=== PATIENT | female | born 1995 | race Caucasian/White ===

== ENCOUNTER 2022-07-06 14:42 | Inpatient (IN) ==
--- NOTE | 2022-07-06 15:05 | History & Physical Report ---
Date of Service July 06, 2022 Assessment & Plan (1) Obesity affecting in third trimester, antepartum: (2) Gestational diabetes mellitus (GDM): (3) Oligohydramnios: Plan: 26-year-old -0-1-0 at 37 weeks and 6 days of gestation sent from office by MFM for induction of labor at term due to high risk with oligohydramnios noted today, Vital signs stable afebrile, heart rate reassuring, GBS negative, Cervix unfavorable, Plan to admit, monitor, labs, cervical ripening with prostaglandins, All questions were answered. (4) Asplenia: Admission and Anticipated Discharge Date Admission Date: July 06, 2022 History of Present Illness Primary Care Provider: Hung Saeed MD Patient is a 26-year-old -0-1-0 at 37 weeks and 6 days of gestation who was sent from office after having ultrasound by [facility] which indicated oligohydramnios but one pocket of 1.7 cm. Patient denies contractions, leakage of fluid, vaginal bleeding. She reports good movements. Her has been complicated by, 1. Obesity during , 2. GDMA1, 3. Thrombocytosis, 4. History of LGSIL GBS negative Allergies Allergy/AdvReac Type Severity Reaction Status Date / Time No Known Allergies Allergy Mild Verified 07/06/22 15:40 Home Medications Medication Instructions Recorded Confirmed Type prenat.vits,hugo,qgo-kjva-zhoqs 1 tab PO DAILY 07/06/22 07/06/22 History Patient History Medical History (Updated 07/06/22 @ 15:05 by Wesly Srivastava MD) Asplenia following mono Asthma No chronic diseases present Varicella vaccination Surgical History H/O splenectomy Family History Denies family history of Ovarian cancer Breast cancer Colorectal cancer Uterine cancer Social History Smoking Status: Never smoker Tobacco Type: Cigarettes Hx Alcohol Use: Yes Hx Substance Use: No Preferred Language: Hebrew Beliefs That Will Affect Care: None marital status: Single marital status details: danny Hinojosa (23) [phone] Current Living Situation: Parent Current Living Situation Comment: lives with her father current occupational status: employed current occupation: [employer] Other Information That Helps Us Care for You: No Feels Safe at Home: Yes Safety Concerns: Feels Safe At This Time OB History #1, SAB in 2020, #2 current PTA History No history of STDs, no history of genital herpes, chlamydia, gonorrhea. Review of Systems as per Subjective / HPI Physical Exam Constitutional: WD/WN, vitals as above well developed, well nourished, + obese and comfortable Gastrointestinal (Abdomen): normal bowel sounds, soft, nontender, no hepatosplenomegaly (Gravid) Genitourinary: normal external appearance OB Exam Abdomen: + vertex Manual OB Exam: + cervical dilation 1 cm, + cervical effacement 30% and + station high OB Exam Monitor Tracing: + external uterine monitor used and + category I Results & Data ([facility]) Vital Signs (Past 12 Hours) Vital Signs Pulse BP 07/06/22 14:49 81 119/62
[2022-07-06] MEDS ORDERED: DINOPROSTONE 10 MG INSERT PV ONE (15:10)
[2022-07-06] MEDS ORDERED: LIDOCAINE 1% LOCAL 20 ML VIAL INFIL PRN (15:10)
[2022-07-06] MEDS ORDERED: OXYTOCIN 30 UNITS/500 ML BAG IV PRN (15:10)
[2022-07-06 15:51] LABS: Hematocrit (blood only) 32.8 % (37.0-47.0); Hemoglobin 11.2 g/dl (12.0-16.0); Mean Corpuscular Hemoglobin 28.6 pg (25.0-34.0); Mean Corpuscular Hgb Conc 34.1 g/dL (32.0-36.0); Mean Corpuscular Volume 83.7 fL (80.0-100.0); Mean Platelet Volume 10.5 fL (9.4-12.4); Platelet Count 405 K/uL (130-400); RDW Coefficient of Variation 14.9 % (11.5-14.5); Red Blood Count 3.92 M/uL (4.20-5.40); White Blood Count 9.51 K/ul (4.8-10.8)
[2022-07-06 16:06] LABS: Albumin Level 3.2 gm/dl (3.4-5.0); Bilirubin,Total 0.3 mg/dl (0.2-1.0); Calcium 9.2 mg/dl (8.5-10.1); Potassium 3.7 mmol/L (3.5-5.1)
[2022-07-06] MEDS ORDERED: BUTORPHANOL TARTRATE 1 MG/ML VIAL IV PRN (16:09)
[2022-07-06 16:12] LABS: Albumin Globulin Ratio 0.9 (0.9-2); BUN Creatinine Ratio 13.8 (10-20); Creatinine Clr Calc Pharmacy 175.5 ml/min; Est GFR (African American) 148.5 ml/min; Est GFR (Non-African American) 128.1 ml/min; Globulin 3.5 gm/dl (2.5-4.0); Total Protein 6.7 gm/dl (6.0-8.3)
[2022-07-06] MEDS: LACTATED RINGER'S 1,000 ML IV PRN ×3 (17:36→22:47)
[2022-07-06] MEDS: ONDANSETRON INJ 2 MG/ML 2 ML VIAL IV PRN (20:56)
[2022-07-06] MEDS ORDERED: ePHEDrine sulfate 50 MG/ML AMP ONE (21:58)
[2022-07-06] MEDS ORDERED: fentaNYL citrate 100 MCG/2 ML VIAL ONE (21:59)
[2022-07-06] MEDS ORDERED: LIDOCAINE 2%/EPINEPHRINE 1:200,000 20 ML SDV ONE (21:59)
[2022-07-06] MEDS ORDERED: SODIUM CHLORIDE 0.9% INJ 10 ML VIAL ONE (21:59)
[2022-07-06] MEDS ORDERED: fentaNYL 2MCG/ML ROPIVACAINE 1.25MG/ML 100 ML BAG EPI ONE (21:59)
[2022-07-06] MEDS ORDERED: BUPIVACAINE 0.25% 30 ML VIAL ONE (21:59)
--- NOTE | 2022-07-06 22:18 | Anesthesiology Consultation ---
Date of Service July 06, 2022 Assessment & Plan (1) Encounter for pre-operative examination: Chart Review Chart Review: Acceptable Risk for Labor Epidural Consults Requested none ASA ASA2 Proposed Anesthesia Anesthesia Type: Labor Epidural Risk / Benefits Reviewed With: PT / POA / Parent / Guardian, Accepts Plan and Informed Consent Obtained History Height/Weight Height: 5 ft 3 in Weight: 108.862 kg Allergies Allergy/AdvReac Type Severity Reaction Status Date / Time No Known Allergies Allergy Mild Verified 07/06/22 15:40 Medications Home Medications Medication Instructions Recorded Confirmed Last Taken prenat.vits,hugo,zdf-weyq-mdjfr 1 tab PO DAILY 07/06/22 07/06/22 Unknown Active Medications Generic Name Dose Route Start Last Admin Trade Name Freq PRN Reason Stop Dose Admin Butorphanol Tartrate 1 mg 07/06/22 16:09 07/06/22 18:17 Butorphanol Tartrate 1 Mg/Ml Vial IV 08/05/22 16:08 1 mg Q3HWA PRN Administration Pain Lactated Ringer's 1,000 mls @ 150 mls/hr 07/06/22 15:10 07/06/22 21:15 Lr IV 07/08/22 15:09 999 mls/hr .[id number] PRN Administration L&D Protocol Protocol Ondansetron HCl 4 mg 07/06/22 20:45 07/06/22 20:56 Ondansetron Inj 2 Mg/Ml 2 Ml Vial IV 08/05/22 20:44 4 mg Q4H PRN Administration Nausea Past Medical History Medical History Asplenia following mono Asthma No chronic diseases present Varicella vaccination Exercise / Class Metabolic Activity II 4-5 Yardwork/Stairs/Walk up hill Past Family History Family History Denies family history of Ovarian cancer Breast cancer Colorectal cancer Uterine cancer Past Surgical History Surgical History H/O splenectomy Past Anesthesia History No Hx of Anesthesia Complications and No Family Hx of Anesthesia Complications History of PONV No Hx of PONV and No Hx of Motion Sickness Social History Smoking Status: Never smoker Hx Alcohol Use: No Hx Substance Use: No substance use type: does not use Physical Exam Vital Signs Last Vital Signs Temp 98.1 F 07/06/22 19:30 Pulse 62 07/06/22 22:10 Resp 16 07/06/22 19:30 BP 116/56 L 07/06/22 19:27 Pulse Ox 96 07/06/22 22:10 ENMT Mouth: no dentition abnormality Thyromental Distance: > or= 3.5 Finger Breadths Mallampati Class: II Neck normal visual inspection Respiratory normal respiratory effort Auscultation: lungs clear to auscultation bilaterally Cardiovascular Rate/Rhythm: regular rate and regular rhythm Testing Laboratory Results 07/06/22 15:38 07/06/22 15:39 Blood Type O Positive 07/06/22 15:38 Antibody Screen NEGATIVE 07/06/22 15:38 07/06/22 07/06/22 19:29 16:10 POC Glucose 97 111 H
--- NOTE | 2022-07-06 22:22 | Obstetrical Progress Note ---
Date of Service July 06, 2022 Assessment & Plan Admission and Anticipated Discharge Date Admission Date: July 06, 2022 Subjective Patient is reevaluated. She has recevied Cervidil at 4 pm and started to have ctxs around 5 pm. She has received Stadol for pain around 6 pm and now again painful. Contractions have been very close to each other every q1-2 min and she has been feeling them all. VE; Cevidil is removed, cervix is 2/ 50%/ -2, tight bag FHR categ I Continue to monitor closely Epidural for pain. Results & Data ([facility]) Vital Signs (Past 12 Hours) Vital Signs Temp Pulse Resp BP Pulse Ox 07/06/22 14:56 36.6 C 20 07/06/22 22:15 98 07/06/22 22:15 63 07/06/22 22:10 96 07/06/22 22:10 62 07/06/22 22:05 96 07/06/22 22:05 60 07/06/22 22:00 98 07/06/22 22:00 70 07/06/22 21:56 93 07/06/22 21:56 60 07/06/22 21:55 96 07/06/22 21:55 58 L 07/06/22 19:30 16 07/06/22 19:30 36.7 C 16 07/06/22 19:27 69 07/06/22 19:27 116/56 L 07/06/22 18:55 76 07/06/22 18:55 97/56 L 07/06/22 18:50 67 07/06/22 18:50 99/54 L 07/06/22 18:45 71 07/06/22 18:45 94/51 L 07/06/22 18:44 67 07/06/22 18:44 87/52 L 07/06/22 18:34 69 07/06/22 18:34 87/48 L 07/06/22 18:32 68 07/06/22 18:32 84/42 L 07/06/22 18:29 65 07/06/22 18:29 88/45 L 07/06/22 14:49 81 119/62
[2022-07-06] MEDS ORDERED: NALOXONE HCL 1 MG in SODIUM CHLORIDE 0.9% 1000ML 1,000 ML IV PRN (22:37)
[2022-07-06] MEDS ORDERED: NALOXONE HCL 0.4 MG/1 ML VIAL/CARP IV PRN (22:37)
[2022-07-06] MEDS ORDERED: ONDANSETRON INJ 2 MG/ML 2 ML VIAL IV PRN (22:37)
[2022-07-06] MEDS ORDERED: NALBUPHINE HCL INJ 10 MG/ML AMP IV PRN (22:37)
[2022-07-06] MEDS ORDERED: ePHEDrine sulfate 50 MG/ML AMP IV PRN (22:37)
[2022-07-06] MEDS ORDERED: diphenhydrAMINE 50 MG/ML VIAL IV PRN (22:37)
[2022-07-06] MEDS ORDERED: fentaNYL 2MCG/ML ROPIVACAINE 1.25MG/ML 100 ML BAG EPI PRN (22:37)
[2022-07-06] MEDS ORDERED: TERBUTALINE SULFATE 1 MG/ML VIAL SQ ONE (23:40)
[2022-07-07] MEDS: ONDANSETRON INJ 2 MG/ML 2 ML VIAL IV PRN ×2 (02:24→06:32)
[2022-07-07] MEDS ORDERED: NURSING L&D Epidural Breakthrough Pain Update ONE (02:33)
--- NOTE | 2022-07-07 02:58 | Obstetrical Progress Note ---
Date of Service July 07, 2022 Assessment & Plan Admission and Anticipated Discharge Date Admission Date: July 06, 2022 Subjective FHR had been categ I despite hyperstimulation earlier, ctxs spaced out and did not need to give Terbutaline, FHR baseline 105-110,Started to have decels with and after contractions. VE; 6/ 90%/ 0, good accel and increased variability after scalp stimulation Ctxs q 1-2 min Patients pulse ox drops to low 90's when sleeping suggesting sleep apnea Started nasal O2, IVF bolus and one dose of Terbutaline FHR 110-120's Continue to monitor closely Anticipate Results & Data ([facility]) Vital Signs (Past 12 Hours) Vital Signs Temp Pulse Resp BP Pulse Ox 07/06/22 14:56 36.6 C 20 07/07/22 02:50 60 99 07/07/22 02:51 70 102/55 L 07/07/22 02:45 66 98 07/07/22 02:44 61 94 07/07/22 02:40 62 97 07/07/22 02:37 55 L 106/52 L 07/07/22 02:35 59 L 93 07/07/22 02:34 55 L 93 07/07/22 02:30 57 L 18 94 07/07/22 02:28 57 L 94 07/07/22 02:25 61 96 07/07/22 02:22 69 94 07/07/22 02:20 77 96 07/07/22 02:21 97 H 130/77 07/07/22 02:15 58 L 97 07/07/22 02:13 60 94 07/07/22 02:10 57 L 95 07/07/22 02:07 56 L 126/82 07/07/22 02:06 63 94 07/07/22 02:05 60 96 07/07/22 02:00 36.7 C 60 18 96 07/07/22 01:58 57 L 94 07/07/22 01:55 59 L 94 07/07/22 01:53 61 94 07/07/22 01:52 56 L 132/69 07/07/22 01:50 66 97 07/07/22 01:45 86 96 07/07/22 01:40 95 07/07/22 01:40 60 07/07/22 01:40 65 94 07/07/22 01:36 61 106/60 02/03/23 01:35 94 07/07/22 01:35 66 07/07/22 01:35 60 94 07/07/22 01:30 57 L 18 94 07/07/22 01:29 62 94 07/07/22 01:25 63 94 07/07/22 01:24 60 94 07/07/22 01:20 55 L 96 07/07/22 01:21 55 L 118/68 07/07/22 01:18 64 94 07/07/22 01:15 58 L 97 07/07/22 01:10 55 L 96 07/07/22 01:07 55 L 115/55 L 94 07/07/22 01:05 59 L 95 07/07/22 01:00 57 L 96 07/07/22 00:59 62 94 07/07/22 00:55 59 L 94 07/07/22 00:53 59 L 94 07/07/22 00:51 67 103/59 L 07/07/22 00:50 66 92 07/07/22 00:48 57 L 94 07/07/22 00:45 65 92 07/07/22 00:40 57 L 95 07/07/22 00:41 56 L 94 07/07/22 00:35 56 L 91 07/07/22 00:36 54 L 104/55 L 07/07/22 00:34 57 L 93 07/07/22 00:30 55 L 18 95 07/07/22 00:28 56 L 94 07/07/22 00:25 58 L 93 07/07/22 00:22 52 L 110/59 L 07/07/22 00:21 54 L 94 07/07/22 00:20 58 L 94 07/07/22 00:15 56 L 92 07/07/22 00:16 61 93 07/07/22 00:10 93 07/07/22 00:10 57 L 07/07/22 00:10 57 L 93 07/07/22 00:07 65 99/54 L 07/07/22 00:05 58 L 94 07/07/22 00:01 58 L 94 07/07/22 00:00 60 18 93 07/06/22 23:55 94 07/06/22 23:55 53 L 07/06/22 23:54 94 07/06/22 23:54 61 02/02/23 23:52 54 L 07/06/22 23:52 112/56 L 07/06/22 23:50 94 07/06/22 23:50 55 L 07/06/22 23:49 93 07/06/22 23:49 62 07/06/22 23:45 92 07/06/22 23:45 67 07/06/22 23:44 94 07/06/22 23:44 65 07/06/22 23:40 94 07/06/22 23:40 56 L 07/06/22 23:38 94 07/06/22 23:38 61 07/06/22 23:37 70 07/06/22 23:37 103/52 L 07/06/22 23:35 95 07/06/22 23:35 55 L 07/06/22 23:33 94 07/06/22 23:33 59 L 07/06/22 23:30 18 07/06/22 23:30 18 07/06/22 23:30 94 07/06/22 23:30 63 07/06/22 23:27 94 07/06/22 23:27 59 L 07/06/22 23:25 95 07/06/22 23:25 59 L 07/06/22 23:21 94 07/06/22 23:21 63 07/06/22 23:21 102/52 L 07/06/22 23:20 94 07/06/22 23:20 58 L 07/06/22 23:15 93 07/06/22 23:15 61 07/06/22 23:10 96 07/06/22 23:10 53 L 07/06/22 23:08 94 07/06/22 23:07 51 L 07/06/22 23:08 56 L 07/06/22 23:07 109/59 L 07/06/22 23:05 96 07/06/22 23:05 72 07/06/22 23:00 97 07/06/22 23:01 94 07/06/22 23:00 61 07/06/22 23:01 62 07/06/22 23:00 18 07/06/22 23:00 36.9 C 18 07/06/22 22:55 97 07/06/22 22:55 56 L 07/06/22 22:18 18 07/06/22 22:18 18 07/06/22 22:51 51 L 07/06/22 22:51 107/59 L 07/06/22 22:50 97 07/06/22 22:50 61 07/06/22 22:49 54 L 07/06/22 22:49 105/55 L 07/06/22 22:45 98 07/06/22 22:45 59 L 07/06/22 22:43 68 07/06/22 22:43 113/53 L 07/06/22 22:41 94 07/06/22 22:41 75 07/06/22 22:41 117/65 07/06/22 22:40 97 07/06/22 22:40 71 07/06/22 22:39 73 07/06/22 22:39 117/61 07/06/22 22:37 81 07/06/22 22:37 122/65 07/06/22 22:35 97 07/06/22 22:35 75 07/06/22 22:35 79 07/06/22 22:35 121/61 07/06/22 22:32 95 H 07/06/22 22:32 119/77 07/06/22 22:30 98 07/06/22 22:30 86 07/06/22 22:29 59 L 07/06/22 22:29 116/67 07/06/22 22:25 98 07/06/22 22:25 70 07/06/22 22:20 98 07/06/22 22:20 67 07/06/22 22:15 98 07/06/22 22:15 63 07/06/22 22:10 96 07/06/22 22:10 62 07/06/22 22:05 96 07/06/22 22:05 60 07/06/22 22:00 98 07/06/22 22:00 70 07/06/22 21:56 93 07/06/22 21:56 60 07/06/22 21:55 96 07/06/22 21:55 58 L 07/06/22 19:30 16 07/06/22 19:30 36.7 C 16 07/06/22 19:27 69 07/06/22 19:27 116/56 L 07/06/22 18:55 76 07/06/22 18:55 97/56 L 07/06/22 18:50 67 07/06/22 18:50 99/54 L 07/06/22 18:45 71 07/06/22 18:45 94/51 L 07/06/22 18:44 67 07/06/22 18:44 87/52 L 07/06/22 18:34 69 07/06/22 18:34 87/48 L 07/06/22 18:32 68 07/06/22 18:32 84/42 L 07/06/22 18:29 65 07/06/22 18:29 88/45 L
[2022-07-07] MEDS: LACTATED RINGER'S 1,000 ML IV PRN ×2 (02:59→07:11)
[2022-07-07] MEDS ORDERED: TERBUTALINE SULFATE 1 MG/ML VIAL ONE (06:15)
[2022-07-07] MEDS ORDERED: OXYTOCIN 30 UNITS/500 ML BAG IV PRN ×2 (07:23→11:35)
--- NOTE | 2022-07-07 09:04 | Anesthesia Procedure Note ---
Date of Service July 07, 2022 Anesthesia Post Epidural Note Vital Signs Vital Signs: Temp Pulse Resp BP Pulse Ox O2 Del Method O2 Flow Rate 97.7 F 80 18 100/54 L 88 L 2 07/07/22 08:30 07/07/22 08:51 07/07/22 08:45 07/07/22 08:51 07/07/22 08:15 07/07/22 07:05 07/07/22 07:05 Pain Intensity Bilateral Abdomen: Pain Intensity: 0 Notes Mental Status: alert / awake / arousable and participated in evaluation Nausea / Vomiting: adequately controlled Pain: adequately controlled Airway Patency, RR, SpO2: stable & adequate BP & HR: stable & adequate Hydration State: stable & adequate Neuraxial Anesthesia: was administered and sensory block is resolving Anesthetic Complications: no major complications apparent and Pt Satisfied with anesthetic care Epidural: Removed without complications and With tip intact
--- NOTE | 2022-07-07 09:31 | Delivery Summary ---
Vaginal Delivery Summary Date of Service July 07, 2022 Vaginal Delivery Summary Delivery Note live male over intact perineum MARGARETTE with nuchal cord x1 reduced at time of delivery of head. Apgars 8/9 weight pending. Cord blood obtained followed by spontaneous delivery of intact placenta. No tears. EBL 100 ml. Final sponge and instrument count are correct. Mom and baby stable.
[2022-07-07] MEDS ORDERED: BENZOCAINE 20% AER SPR 82.5 GM CAN EXT PRN (11:35)
[2022-07-07] MEDS ORDERED: bisacodyL 10 MG SUPP PR PRN (11:35)
[2022-07-07] MEDS ORDERED: DIPHTHERIA/TETANUS/PERTUSSIS 0.5mL SYR/VIAL (Age 7+yrs) IM ONE (11:35)
[2022-07-07] MEDS ORDERED: ACETAMINOPHEN 325 MG TAB PO PRN (11:35)
[2022-07-07] MEDS ORDERED: HYDROCORTISONE ACETATE 25 MG SUPP PR PRN (11:35)
[2022-07-07] MEDS ORDERED: IBUPROFEN 600 MG TAB PO PRN (11:35)
[2022-07-07] MEDS: DOCUSATE SODIUM 100 MG CAP PO SCH (20:52)
[2022-07-08 06:26] LABS: Hematocrit (blood only) 29.4 % (37.0-47.0); Mean Corpuscular Hemoglobin 28.9 pg (25.0-34.0); Mean Platelet Volume 10.5 fL (9.4-12.4); Platelet Count 338 K/uL (130-400); RDW Coefficient of Variation 15.2 % (11.5-14.5); RDW Standard Deviation 46.5 fL (36.4-46.3); Red Blood Count 3.46 M/uL (4.20-5.40); White Blood Count 16.34 K/ul (4.8-10.8)
--- NOTE | 2022-07-08 07:33 | Obstetrical Progress Note ---
Date of Service July 08, 2022 Assessment & Plan Admission and Anticipated Discharge Date Admission Date: July 06, 2022 Subjective Patient is seen and examined. She feels well, no complaints. Ambulating without dizziness Voiding without difficulty Tolerating regular diet with out N&V Bleeding is minimal No fever/ chills/ CP/ SOB/ N&V/ Leg pain Bottle feeding without problems Vital Signs Temp Pulse Resp BP Pulse Ox O2 Del Method 07/08/22 03:10 36.8 C 70 18 110/69 95 Room Air 07/07/22 23:20 36.9 C 69 16 116/71 96 Room Air 07/07/22 20:15 36.8 C 78 18 111/67 96 Room Air Lab Results 07/06/22 07/06/22 07/06/22 Range/Units 15:38 15:38 15:39 WBC 9.51 (4.8-10.8) K/ul RBC 3.92 L (4.20-5.40) M/uL Hgb 11.2 L (12.0-16.0) g/dl Hct 32.8 L (37.0-47.0) % MCV 83.7 (80.0-100.0) fL MCH 28.6 (25.0-34.0) pg MCHC 34.1 (32.0-36.0) g/dL RDW Std Deviation 45.0 (36.4-46.3) fL RDW Coeff of Oliva 14.9 H (11.5-14.5) % Plt Count 405 H (130-400) K/uL MPV 10.5 (9.4-12.4) fL Sodium 136 (136-145) mmol/L Potassium 3.7 (3.5-5.1) mmol/L Chloride 105 (98-107) mmol/L Carbon Dioxide 23 (21-32) mmol/L Anion Gap 8 (3-11) BUN 8 (6-23) mg/dl Creatinine 0.58 L (0.6-1.2) mg/dl Est Cr Clr Drug Dosing 175.5 ml/min Est GFR ( Amer) 148.5 ml/min Est GFR (Non-Af Amer) 128.1 ml/min BUN/Creatinine Ratio 13.8 (10-20) Glucose 118 H (70-99(Fasting)) mg/dl POC Glucose (70-99) mg/dl Calcium 9.2 (8.5-10.1) mg/dl Total Bilirubin 0.3 (0.2-1.0) mg/dl AST 9 L (13-39) U/L ALT 8 (7-52) U/L Alkaline Phosphatase 114 H (34-104) U/L Total Protein 6.7 (6.0-8.3) gm/dl Albumin 3.2 L (3.4-5.0) gm/dl Globulin 3.5 (2.5-4.0) gm/dl Albumin/Globulin Ratio 0.9 (0.9-2) SARS-CoV-2, RNA, NAAT (NEGATIVE) Blood Type O Positive Antibody Screen NEGATIVE 07/06/22 07/06/22 07/06/22 Range/Units 16:10 19:29 Unknown WBC (4.8-10.8) K/ul RBC (4.20-5.40) M/uL Hgb (12.0-16.0) g/dl Hct (37.0-47.0) % MCV (80.0-100.0) fL MCH (25.0-34.0) pg MCHC (32.0-36.0) g/dL RDW Std Deviation (36.4-46.3) fL RDW Coeff of Oliva (11.5-14.5) % Plt Count (130-400) K/uL MPV (9.4-12.4) fL Sodium (136-145) mmol/L Potassium (3.5-5.1) mmol/L Chloride (98-107) mmol/L Carbon Dioxide (21-32) mmol/L Anion Gap (3-11) BUN (6-23) mg/dl Creatinine (0.6-1.2) mg/dl Est Cr Clr Drug Dosing ml/min Est GFR ( Amer) ml/min Est GFR (Non-Af Amer) ml/min BUN/Creatinine Ratio (10-20) Glucose (70-99(Fasting)) mg/dl POC Glucose 111 H 97 (70-99) mg/dl Calcium (8.5-10.1) mg/dl Total Bilirubin (0.2-1.0) mg/dl AST (13-39) U/L ALT (7-52) U/L Alkaline Phosphatase (34-104) U/L Total Protein (6.0-8.3) gm/dl Albumin (3.4-5.0) gm/dl Globulin (2.5-4.0) gm/dl Albumin/Globulin Ratio (0.9-2) SARS-CoV-2, RNA, NAAT NEGATIVE (NEGATIVE) Blood Type Antibody Screen 07/08/22 Range/Units 05:54 WBC 16.34 H (4.8-10.8) K/ul RBC 3.46 L (4.20-5.40) M/uL Hgb 10.0 L (12.0-16.0) g/dl Hct 29.4 L (37.0-47.0) % MCV 85.0 (80.0-100.0) fL MCH 28.9 (25.0-34.0) pg MCHC 34.0 (32.0-36.0) g/dL RDW Std Deviation 46.5 H (36.4-46.3) fL RDW Coeff of Oliva 15.2 H (11.5-14.5) % Plt Count 338 (130-400) K/uL MPV 10.5 (9.4-12.4) fL Sodium (136-145) mmol/L Potassium (3.5-5.1) mmol/L Chloride (98-107) mmol/L Carbon Dioxide (21-32) mmol/L Anion Gap (3-11) BUN (6-23) mg/dl Creatinine (0.6-1.2) mg/dl Est Cr Clr Drug Dosing ml/min Est GFR ( Amer) ml/min Est GFR (Non-Af Amer) ml/min BUN/Creatinine Ratio (10-20) Glucose (70-99(Fasting)) mg/dl POC Glucose (70-99) mg/dl Calcium (8.5-10.1) mg/dl Total Bilirubin (0.2-1.0) mg/dl AST (13-39) U/L ALT (7-52) U/L Alkaline Phosphatase (34-104) U/L Total Protein (6.0-8.3) gm/dl Albumin (3.4-5.0) gm/dl Globulin (2.5-4.0) gm/dl Albumin/Globulin Ratio (0.9-2) SARS-CoV-2, RNA, NAAT (NEGATIVE) Blood Type Antibody Screen PE: General: Alert, orientedx3, NAD Abd: soft, NT, fundus firm, below Umbilicus Perineum intact, Lochia rubra minimal Ext; NT, no edema AP: 26 yo s/p , ppd# 1 VSS Afebrile doing well Continue routine care All questions were answered D/C home tomorrow Results & Data ([facility]) Vital Signs (Past 12 Hours) Vital Signs Temp Pulse Resp BP Pulse Ox O2 Del Method 07/08/22 03:10 36.8 C 70 18 110/69 95 Room Air 07/07/22 23:20 36.9 C 69 16 116/71 96 Room Air 07/07/22 20:15 36.8 C 78 18 111/67 96 Room Air
[2022-07-08] MEDS: PRENATAL VITAMIN 1 TAB PO SCH (07:49)
[2022-07-08] MEDS: DOCUSATE SODIUM 100 MG CAP PO SCH (07:49)
[2022-07-08] MEDS ORDERED: NON-FORMULARY MEDICATION (Prenat.Vits,Cal,Min-Iron-Folic Tablet) PO SCH (09:00)
[2022-07-08] MEDS ORDERED: bisacodyL 5 MG TABEC PO SCH (20:00)
[2022-07-09] MEDS: DOCUSATE SODIUM 100 MG CAP PO SCH ×2 (00:10→08:23)
[2022-07-09 06:46] LABS: Hematocrit (blood only) 32.9 % (37.0-47.0); Hemoglobin 11.1 g/dl (12.0-16.0); Mean Corpuscular Hemoglobin 28.8 pg (25.0-34.0); Mean Corpuscular Hgb Conc 33.7 g/dL (32.0-36.0); Mean Corpuscular Volume 85.2 fL (80.0-100.0); Mean Platelet Volume 10.7 fL (9.4-12.4); Platelet Count 408 K/uL (130-400); RDW Coefficient of Variation 15.2 % (11.5-14.5); RDW Standard Deviation 45.9 fL (36.4-46.3); Red Blood Count 3.86 M/uL (4.20-5.40); White Blood Count 15.78 K/ul (4.8-10.8)
[2022-07-09 07:47] LABS: Basophils # (auto) 0.07 K/uL (0-0.2); Basophils % (auto) 0.4 %; Eosinophils # (auto) 0.31 K/uL (0-0.50); Immature Granulocytes # (auto) 0.07 K/uL (0.01-0.20); Immature Granulocytes % (auto) 0.4 %; Lymphocytes # (auto) 5.47 K/uL (1.2-3.4); Lymphocytes % (auto) 34.7 %; Monocytes # (auto) 1.19 K/uL (0.11-0.59); Monocytes % (auto) 7.5 %; Neutrophils # (auto) 8.67 K/uL (1.40-6.50); RBC Morphology Unremarkable
[2022-07-09] MEDS: FERROUS SULFATE 325 MG TAB PO SCH ×2 (08:23→08:24)
[2022-07-09] MEDS: PRENATAL VITAMIN 1 TAB PO SCH (08:24)
--- NOTE | 2022-07-09 11:02 | Obstetrical Progress Note ---
Date of Service July 09, 2022 Assessment & Plan Admission and Anticipated Discharge Date Admission Date: July 06, 2022 Subjective Patient is seen and examined. She feels well, no complaints. Ambulating without dizziness Voiding without difficulty Tolerating regular diet with out N&V Bleeding is minimal No fever/ chills/ CP/ SOB/ N&V/ Leg pain Bottle feeding without problems Vital Signs Temp Pulse Resp BP Pulse Ox O2 Del Method 07/09/22 08:51 36.7 C 59 L 18 117/76 95 07/09/22 08:05 36.7 C 59 L 18 117/76 Room Air Lab Results 07/06/22 07/06/22 07/06/22 Range/Units 15:38 15:38 15:39 WBC 9.51 (4.8-10.8) K/ul RBC 3.92 L (4.20-5.40) M/uL Hgb 11.2 L (12.0-16.0) g/dl Hct 32.8 L (37.0-47.0) % MCV 83.7 (80.0-100.0) fL MCH 28.6 (25.0-34.0) pg MCHC 34.1 (32.0-36.0) g/dL RDW Std Deviation 45.0 (36.4-46.3) fL RDW Coeff of Oliva 14.9 H (11.5-14.5) % Plt Count 405 H (130-400) K/uL MPV 10.5 (9.4-12.4) fL Immature Gran % (Auto) % Neut % (Auto) % Lymph % (Auto) % [place] % (Auto) % Eos % (Auto) % Baso % (Auto) % Neut # (Auto) (1.40-6.50) K/uL Lymph # (Auto) (1.2-3.4) K/uL [place] # (Auto) (0.11-0.59) K/uL Eos # (Auto) (0-0.50) K/uL Baso # (Auto) (0-0.2) K/uL Immature Gran # (Auto) (0.01-0.20) K/uL RBC Morphology Sodium 136 (136-145) mmol/L Potassium 3.7 (3.5-5.1) mmol/L Chloride 105 (98-107) mmol/L Carbon Dioxide 23 (21-32) mmol/L Anion Gap 8 (3-11) BUN 8 (6-23) mg/dl Creatinine 0.58 L (0.6-1.2) mg/dl Est Cr Clr Drug Dosing 175.5 ml/min Est GFR ( Amer) 148.5 ml/min Est GFR (Non-Af Amer) 128.1 ml/min BUN/Creatinine Ratio 13.8 (10-20) Glucose 118 H (70-99(Fasting)) mg/dl POC Glucose (70-99) mg/dl Calcium 9.2 (8.5-10.1) mg/dl Total Bilirubin 0.3 (0.2-1.0) mg/dl AST 9 L (13-39) U/L ALT 8 (7-52) U/L Alkaline Phosphatase 114 H (34-104) U/L Total Protein 6.7 (6.0-8.3) gm/dl Albumin 3.2 L (3.4-5.0) gm/dl Globulin 3.5 (2.5-4.0) gm/dl Albumin/Globulin Ratio 0.9 (0.9-2) SARS-CoV-2, RNA, NAAT (NEGATIVE) Blood Type O Positive Antibody Screen NEGATIVE 07/06/22 07/06/22 07/06/22 Range/Units 16:10 19:29 Unknown WBC (4.8-10.8) K/ul RBC (4.20-5.40) M/uL Hgb (12.0-16.0) g/dl Hct (37.0-47.0) % MCV (80.0-100.0) fL MCH (25.0-34.0) pg MCHC (32.0-36.0) g/dL RDW Std Deviation (36.4-46.3) fL RDW Coeff of Oliva (11.5-14.5) % Plt Count (130-400) K/uL MPV (9.4-12.4) fL Immature Gran % (Auto) % Neut % (Auto) % Lymph % (Auto) % [place] % (Auto) % Eos % (Auto) % Baso % (Auto) % Neut # (Auto) (1.40-6.50) K/uL Lymph # (Auto) (1.2-3.4) K/uL [place] # (Auto) (0.11-0.59) K/uL Eos # (Auto) (0-0.50) K/uL Baso # (Auto) (0-0.2) K/uL Immature Gran # (Auto) (0.01-0.20) K/uL RBC Morphology Sodium (136-145) mmol/L Potassium (3.5-5.1) mmol/L Chloride (98-107) mmol/L Carbon Dioxide (21-32) mmol/L Anion Gap (3-11) BUN (6-23) mg/dl Creatinine (0.6-1.2) mg/dl Est Cr Clr Drug Dosing ml/min Est GFR ( Amer) ml/min Est GFR (Non-Af Amer) ml/min BUN/Creatinine Ratio (10-20) Glucose (70-99(Fasting)) mg/dl POC Glucose 111 H 97 (70-99) mg/dl Calcium (8.5-10.1) mg/dl Total Bilirubin (0.2-1.0) mg/dl AST (13-39) U/L ALT (7-52) U/L Alkaline Phosphatase (34-104) U/L Total Protein (6.0-8.3) gm/dl Albumin (3.4-5.0) gm/dl Globulin (2.5-4.0) gm/dl Albumin/Globulin Ratio (0.9-2) SARS-CoV-2, RNA, NAAT NEGATIVE (NEGATIVE) Blood Type Antibody Screen 07/08/22 07/09/22 Range/Units 05:54 06:07 WBC 16.34 H 15.78 H (4.8-10.8) K/ul RBC 3.46 L 3.86 L (4.20-5.40) M/uL Hgb 10.0 L 11.1 L (12.0-16.0) g/dl Hct 29.4 L 32.9 L (37.0-47.0) % MCV 85.0 85.2 (80.0-100.0) fL MCH 28.9 28.8 (25.0-34.0) pg MCHC 34.0 33.7 (32.0-36.0) g/dL RDW Std Deviation 46.5 H 45.9 (36.4-46.3) fL RDW Coeff of Oliva 15.2 H 15.2 H (11.5-14.5) % Plt Count 338 408 H (130-400) K/uL MPV 10.5 10.7 (9.4-12.4) fL Immature Gran % (Auto) 0.4 % Neut % (Auto) 55.0 % Lymph % (Auto) 34.7 % [place] % (Auto) 7.5 % Eos % (Auto) 2.0 % Baso % (Auto) 0.4 % Neut # (Auto) 8.67 H (1.40-6.50) K/uL Lymph # (Auto) 5.47 H (1.2-3.4) K/uL [place] # (Auto) 1.19 H (0.11-0.59) K/uL Eos # (Auto) 0.31 (0-0.50) K/uL Baso # (Auto) 0.07 (0-0.2) K/uL Immature Gran # (Auto) 0.07 (0.01-0.20) K/uL RBC Morphology Unremarkable Sodium (136-145) mmol/L Potassium (3.5-5.1) mmol/L Chloride (98-107) mmol/L Carbon Dioxide (21-32) mmol/L Anion Gap (3-11) BUN (6-23) mg/dl Creatinine (0.6-1.2) mg/dl Est Cr Clr Drug Dosing ml/min Est GFR ( Amer) ml/min Est GFR (Non-Af Amer) ml/min BUN/Creatinine Ratio (10-20) Glucose (70-99(Fasting)) mg/dl POC Glucose (70-99) mg/dl Calcium (8.5-10.1) mg/dl Total Bilirubin (0.2-1.0) mg/dl AST (13-39) U/L ALT (7-52) U/L Alkaline Phosphatase (34-104) U/L Total Protein (6.0-8.3) gm/dl Albumin (3.4-5.0) gm/dl Globulin (2.5-4.0) gm/dl Albumin/Globulin Ratio (0.9-2) SARS-CoV-2, RNA, NAAT (NEGATIVE) Blood Type Antibody Screen PE: General: Alert, orientedx3, NAD Abd: soft, NT, fundus firm, below Umbilicus Perineum intact, Lochia rubra minimal Ext; NT, no edema AP: 26 yo s/p , ppd# 2 VSS Afebrile doing well Continue routine care All questions were answered D/C home , f/u in office Results & Data ([facility]) Vital Signs (Past 12 Hours) Vital Signs Temp Pulse Resp BP Pulse Ox O2 Del Method 07/09/22 08:51 36.7 C 59 L 18 117/76 95 07/09/22 08:05 36.7 C 59 L 18 117/76 Room Air
== END 2022-07-09 12:30 | disposition home or self-care (01) | DRG 806 ==
LOC: 4S1 14:42 → 4E2 07-07 10:58

== ENCOUNTER 2024-12-27 06:12 | Inpatient (IN) ==
[2024-12-27] MEDS ORDERED: OXYTOCIN 30 UNITS/NSS 30 UNITS/500 ML BAG IV PRN ×2 (07:07→14:03)
[2024-12-27] MEDS ORDERED: LIDOCAINE 1% LOCAL 20 ML VIAL INFIL PRN (07:07)
[2024-12-27] MEDS: LACTATED RINGER'S 1,000 ML IV PRN (07:15)
--- NOTE | 2024-12-27 07:21 | History & Physical Report ---
Date of Service December 27, 2024 Assessment & Plan (1) Gestational diabetes mellitus (GDM) affecting second : Plan: Admit and start GBS prophylaxis History of Present Illness Chief Complaint: ruptured membranes Primary Care Provider: Hung Saeed MD 29 F [id number] at 40 weeks today with onset of contractions with SROM at 5:30 AM with clear fluid. GBS is positive. GDM on diet. Allergies Allergy/AdvReac Type Severity Reaction Status Date / Time No Known Allergies Allergy Mild Verified 12/27/24 06:34 Home Medications Medication Instructions Recorded Confirmed Type prenat.vits,hugo,ofp-xile-iovjr 1 tab PO DAILY 07/06/22 12/27/24 History Patient History Medical History Gestational diabetes mellitus (GDM) Obesity affecting in third trimester, antepartum Asthma Varicella vaccination Asplenia following mono Surgical History H/O splenectomy Family History Denies family history of Ovarian cancer Breast cancer Colorectal cancer Uterine cancer Social History Smoking Status: Never smoker Tobacco Type: Cigarettes Do You Dip or Chew Tobacco: No; Hx Alcohol Use: No Hx Substance Use: No Preferred Language: Thai Clinical Care Leader Required: No Beliefs That Will Affect Care: None marital status: Single marital status details: danny Flynndwayne (23) [phone] Current Living Situation: Parent and Significant Other Current Living Situation Comment: father and fiance current occupational status: employed current occupation: [employer] Other Information That Helps Us Care for You: No Feels Safe at Home: Yes Safety Concerns: Feels Safe At This Time Assistive Devices: None 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 Review of Systems All systems reviewed & are unremarkable except as noted in HPI & below Physical Exam Constitutional: WD/WN, vitals as above Eyes: PERRL, conjunctivae normal, anicteric sclerae Respiratory: normal respiratory effort Cardiovascular: Rate/Rhythm: regular rate and regular rhythm Gastrointestinal (Abdomen): Inspection/Auscultation: abdomen normal to inspection Musculoskeletal: Extremities: extremities normal to inspection Skin: no rashes, warm and dry Neurologic: patellar DTR's 2+ bilat, sensation intact Psychiatric: A+Ox3, euthymic affect Genitourinary: Manual OB Exam: + cervical dilation 4 cm and + amniotic fluid clear OB Exam Monitor Tracing: + external FHT monitor used, + external uterine monitor used, + category I and + normal FHT variability Results & Data Vital Signs (Past 12 Hours) Vital Signs Temp Pulse Resp BP 12/27/24 06:39 82 123/78 12/27/24 06:35 36.8 C 18 Monitoring External Monitor Cat 1
[2024-12-27] MEDS: PENICILLIN GK 6 MU in DEXTROSE 5% 250 ML IV STA (07:45)
[2024-12-27] MEDS ORDERED: BUPIVACAINE 0.25% PF 30 ML VIAL EPI PRN (07:54)
[2024-12-27] MEDS ORDERED: LIDOCAINE 2% MPF LOCAL 5 ML VIAL EPI PRN (07:54)
[2024-12-27] MEDS ORDERED: NALOXONE HCL 1 MG in SODIUM CHLORIDE 0.9% 1,000 ML IV PRN (07:54)
[2024-12-27] MEDS ORDERED: NALOXONE HCL 0.4 MG/1 ML VIAL/CARP IV PRN (07:54)
[2024-12-27] MEDS ORDERED: diphenhydrAMINE 50 MG/ML VIAL IV PRN (07:54)
[2024-12-27] MEDS ORDERED: SODIUM CHLORIDE 0.9% PF INJ 10 ML VIAL EPI PRN (07:54)
[2024-12-27] MEDS ORDERED: NALBUPHINE HCL INJ 10 MG/ML AMP IV PRN (07:54)
[2024-12-27] MEDS ORDERED: ROPIVACAINE 0.5% PF 5 MG/ML 20 ML VIAL EPI PRN (07:54)
[2024-12-27] MEDS ORDERED: fentANYL 2 MCG/ML BUPIVacaine 0.125%-NSS 100ML BAG EPI PRN (07:54)
[2024-12-27 07:55] LABS: Hematocrit (blood only) 32.5 % (37.0-47.0); Hemoglobin 10.7 g/dl (12.0-16.0); Mean Corpuscular Hemoglobin 27.2 pg (25.0-34.0); Mean Corpuscular Volume 82.7 fL (80.0-100.0); Platelet Count 487 K/uL (130-400); RDW Standard Deviation 46.5 fL (36.4-46.3); Red Blood Count 3.93 M/uL (4.20-5.40); White Blood Count 8.98 K/ul (4.8-10.8)
--- NOTE | 2024-12-27 07:55 | Anesthesiology Consultation ---
Date of Service December 27, 2024 Assessment & Plan Chart Review Chart Review: Acceptable Risk for Labor Epidural Consults Requested none History Height/Weight Height: 5 ft 3.5 in Weight: 113.852 kg Allergies Allergy/AdvReac Type Severity Reaction Status Date / Time No Known Allergies Allergy Mild Verified 12/27/24 06:34 Medications Home Medications Medication Instructions Recorded Confirmed Last Taken prenat.vits,hugo,oji-hdao-wotuq 1 tab PO DAILY 07/06/22 12/27/24 12/26/24 Active Medications Generic Name Dose Route Start Last Admin Trade Name Freq PRN Reason Stop Dose Admin Lactated Ringer's 1,000 mls @ 125 mls/hr 12/27/24 07:07 12/27/24 07:15 Lr IV 12/29/24 07:06 999 mls/hr .Q8H PRN Administration L&D Protocol Protocol Penicillin G Potassium 6 mu/ 262 mls @ 250 mls/hr 12/27/24 07:21 12/27/24 07:45 Dextrose IV 12/27/24 08:23 250 mls/hr NOW STA Administration Past Medical History Medical History Gestational diabetes mellitus (GDM) Obesity affecting in third trimester, antepartum Asthma Varicella vaccination Asplenia following mono Past Family History Family History Denies family history of Ovarian cancer Breast cancer Colorectal cancer Uterine cancer Past Surgical History Surgical History H/O splenectomy Social History Smoking Status: Never smoker Do You Dip or Chew Tobacco: No Hx Alcohol Use: No Hx Substance Use: No substance use type: does not use Physical Exam Vital Signs Last Vital Signs Temp 36.8 C 12/27/24 06:35 Pulse 82 12/27/24 06:39 Resp 18 12/27/24 06:35 BP 123/78 12/27/24 06:39
[2024-12-27] MEDS: LIDOCAINE 2%/EPINEPHRINE 1:200,000 20 ML PF ONE (08:15)
[2024-12-27] MEDS: fentANYL 2 MCG/ML BUPIVacaine 0.125%-NSS 100ML BAG ONE (08:20)
[2024-12-27] MEDS: BUPIVACAINE 0.25% PF 30 ML VIAL ONE (08:24)
[2024-12-27] MEDS: SODIUM CHLORIDE 0.9% PF INJ 10 ML VIAL ONE (08:24)
[2024-12-27] MEDS: SODIUM CHLORIDE 0.9% PF INJ 10 ML VIAL EPI STA (08:25)
[2024-12-27] MEDS: BUPIVACAINE 0.25% PF 30 ML VIAL EPI STA (08:25)
[2024-12-27] MEDS: LIDOCAINE 2%/EPINEPHRINE 1:200,000 20 ML PF EPI STA (08:25)
[2024-12-27] MEDS: ONDANSETRON INJ 2 MG/ML 2 ML VIAL IV STA (08:53)
--- NOTE | 2024-12-27 08:58 | Obstetrical Progress Note ---
Date of Service December 27, 2024 Assessment & Plan Admission and Anticipated Discharge Date Admission Date: December 27, 2024 Subjective Patient is seen and examined. She was admitted by Dr. Nielsen this morning for spontaneous rupture of membranes at term. Started at 5:30 AM, clear, followed by contractions. GBS positive, received first dose of penicillin. she has epidural, comfortable now, no complaints. Her has been complicated by GDM 1, diet-controlled no medications. Vital signs stable afebrile, heart rate category 1, Bode shows contractions every 4 to 5 minutes, Vaginal exam done by myself, cervix is 4 cm, 70% effaced, head is -2 station. Continue to monitor closely, Start oxytocin for augmentation with second dose of penicillin, All questions were answered. Results & Data Vital Signs (Past 12 Hours) Vital Signs Temp Pulse Resp BP Pulse Ox 12/27/24 08:54 83 99 12/27/24 08:49 71 99 12/27/24 08:44 74 99 12/27/24 08:41 78 117/61 12/27/24 08:39 87 99 12/27/24 08:34 86 98 12/27/24 08:29 87 98 12/27/24 08:26 96 H 108/56 L 12/27/24 08:24 90 98 12/27/24 08:23 81 110/58 L 12/27/24 08:20 73 119/56 L 12/27/24 08:19 78 98 12/27/24 08:17 83 134/85 12/27/24 08:14 78 98 12/27/24 08:09 76 97 12/27/24 08:04 70 99 12/27/24 08:01 69 94 12/27/24 07:59 61 95 12/27/24 07:56 67 131/80 12/27/24 07:54 68 96 12/27/24 06:39 82 123/78 12/27/24 06:35 36.8 C 18
[2024-12-27] MEDS: PENICILLIN GK 3 MU in DEXTROSE 5% 100 ML IV PRN (11:37)
[2024-12-27] MEDS: OXYTOCIN 30 UNITS/NSS 30 UNITS/500 ML BAG IV PRN (11:55)
--- NOTE | 2024-12-27 13:40 | Obstetrical Progress Note ---
Date of Service December 27, 2024 Assessment & Plan Admission and Anticipated Discharge Date Admission Date: December 27, 2024 Subjective Patient received second dose of penicillin, on oxytocin now, She feels comfortable no pain nor pressure, Vital signs stable afebrile Cervix is 9 cm dilated, 90% effaced, head is 0 station, +1 with contraction, heart rate category 1 with occasional variable D cells, good variability and accelerations present, Continue to monitor closely, Will start pushing when she feels pressure. Results & Data Vital Signs (Past 12 Hours) Vital Signs Temp Pulse Resp BP Pulse Ox 12/27/24 13:34 78 98 12/27/24 13:30 71 94 12/27/24 13:29 82 96 12/27/24 13:27 75 109/64 12/27/24 13:24 69 97 12/27/24 13:19 84 94 12/27/24 13:18 85 94 12/27/24 13:14 69 96 12/27/24 13:12 78 120/64 12/27/24 13:09 69 97 12/27/24 13:08 89 91 12/27/24 13:04 66 96 12/27/24 13:03 71 94 12/27/24 12:59 76 96 12/27/24 12:56 78 130/74 12/27/24 12:54 96 12/27/24 12:54 76 12/27/24 12:54 63 94 12/27/24 12:49 81 96 12/27/24 12:44 63 96 12/27/24 12:41 75 123/76 12/27/24 12:39 77 96 12/27/24 12:35 61 94 12/27/24 12:34 68 96 12/27/24 12:29 79 96 12/27/24 12:27 67 119/73 12/27/24 12:26 76 94 12/27/24 12:24 64 94 12/27/24 12:21 61 93 12/27/24 12:19 68 94 12/27/24 12:14 67 93 12/27/24 12:13 68 94 12/27/24 12:11 66 122/75 12/27/24 12:09 72 96 12/27/24 12:07 63 94 12/27/24 12:04 86 97 12/27/24 11:59 78 97 12/27/24 11:56 64 116/72 93 12/27/24 11:54 66 97 12/27/24 11:50 79 94 12/27/24 11:49 72 95 12/27/24 11:44 67 95 12/27/24 11:42 65 115/69 94 12/27/24 11:39 67 95 12/27/24 11:34 76 95 12/27/24 11:29 64 94 12/27/24 11:27 69 116/71 12/27/24 11:24 84 96 12/27/24 11:19 83 96 12/27/24 11:15 18 12/27/24 11:15 37.0 C 18 12/27/24 11:14 87 96 12/27/24 11:13 73 93 12/27/24 11:11 81 112/57 L 12/27/24 11:09 80 94 12/27/24 11:04 88 97 12/27/24 11:03 73 93 12/27/24 10:59 83 97 12/27/24 10:54 96 12/27/24 10:54 77 12/27/24 10:54 71 94 12/27/24 10:49 72 97 12/27/24 10:44 75 96 12/27/24 10:42 91 H 143/85 H 12/27/24 10:39 86 96 12/27/24 10:34 94 H 96 12/27/24 10:30 78 94 12/27/24 10:29 77 96 12/27/24 10:28 66 124/59 L 12/27/24 10:24 77 97 12/27/24 10:19 71 96 12/27/24 10:14 76 96 12/27/24 10:11 90 121/65 12/27/24 10:09 95 H 97 12/27/24 10:04 79 97 12/27/24 10:01 36.6 C 12/27/24 09:59 77 97 12/27/24 09:56 76 122/57 L 12/27/24 09:54 83 97 12/27/24 09:49 87 97 12/27/24 09:44 81 97 12/27/24 09:39 73 98 12/27/24 09:34 78 97 12/27/24 09:32 100 H 92 12/27/24 09:29 59 L 98 12/27/24 09:26 81 111/55 L 12/27/24 09:24 75 97 12/27/24 09:19 63 98 12/27/24 09:14 67 96 12/27/24 09:12 70 110/53 L 12/27/24 09:09 62 98 12/27/24 09:04 73 98 12/27/24 08:59 66 97 12/27/24 08:57 85 113/60 12/27/24 08:54 83 99 12/27/24 08:49 71 99 12/27/24 08:44 74 99 12/27/24 08:41 78 117/61 12/27/24 08:39 87 99 12/27/24 08:34 86 98 12/27/24 08:29 87 98 12/27/24 08:26 36.6 C 96 H 18 108/56 L 12/27/24 08:24 90 98 12/27/24 08:23 81 110/58 L 12/27/24 08:20 73 119/56 L 12/27/24 08:19 78 98 12/27/24 08:17 83 134/85 12/27/24 08:14 78 98 12/27/24 08:09 76 97 12/27/24 08:04 70 99 12/27/24 08:01 69 94 12/27/24 07:59 61 95 12/27/24 07:56 67 131/80 12/27/24 07:54 68 96 12/27/24 07:15 18 12/27/24 07:15 36.8 C 18 12/27/24 06:39 82 123/78 12/27/24 06:35 36.8 C 18
[2024-12-27] MEDS ORDERED: BENZOCAINE 20% SPRY 85 APPLN/85 GM CAN EXT PRN (14:03)
[2024-12-27] MEDS ORDERED: HYDROCORTISONE ACETATE 25 MG SUPP PR PRN (14:03)
--- NOTE | 2024-12-27 14:09 | Delivery Summary ---
Vaginal Delivery Summary Date of Service December 27, 2024 Vaginal Delivery Summary Patient was found to be fully dilated and desires to push. She pushed with 2 contractions only, and delivered the head and then shoulders with minimal traction. Nuchal cordx1, reduced. True know was noted in the cord. The baby was handed off to the mother. The cord was clampedx2 and cut at 1 minute. The vagina and perineum were checked and found to be intact with no laceration. The placenta was delivered spontaneously as intact and complete. The uterus was explored and found to be empty. EBL was 100 ml. The fundus was firm The baby was a viable male , Apgars 8/9, the weight is pending The mother and the baby tolerated the procedure well. No complications happened and I was present during whole procedure.
[2024-12-27] MEDS: DOCUSATE SODIUM 100 MG CAP PO SCH (20:22)
[2024-12-27] MEDS: ACETAMINOPHEN 325 MG TAB PO PRN (23:24)
[2024-12-28 06:56] LABS: Hematocrit (blood only) 29.9 % (37.0-47.0); Hemoglobin 9.9 g/dl (12.0-16.0); Mean Corpuscular Hemoglobin 27.9 pg (25.0-34.0); Mean Corpuscular Volume 84.2 fL (80.0-100.0); Platelet Count 446 K/uL (130-400); RDW Standard Deviation 46.5 fL (36.4-46.3); Red Blood Count 3.55 M/uL (4.20-5.40); White Blood Count 13.74 K/ul (4.8-10.8)
[2024-12-28] MEDS: IBUPROFEN 600 MG TAB PO PRN (07:47)
[2024-12-28] MEDS: FERROUS SULFATE 325 MG TAB PO SCH (07:47)
[2024-12-28] MEDS: PRENATAL VITAMIN 1 TAB PO SCH (07:48)
--- NOTE | 2024-12-28 08:16 | Obstetrical Progress Note ---
Date of Service December 28, 2024 Assessment & Plan Admission and Anticipated Discharge Date Admission Date: December 27, 2024 Subjective Patient is seen and examined. She feels well, no complaints. Ambulating without dizziness Voiding without difficulty Tolerating regular diet with out N&V Bleeding is minimal No fever/ chills/ CP/ SOB/ N&V/ Leg pain Bottle feeding without problems Vital Signs Temp Pulse Resp BP Pulse Ox O2 Del Method 12/28/24 03:05 36.6 C 75 16 109/68 96 Room Air 12/27/24 22:58 37.3 C 77 16 124/82 96 Room Air Lab Results 12/27/24 12/28/24 Range/Units 07:37 06:08 WBC 8.98 13.74 H (4.8-10.8) K/ul RBC 3.93 L 3.55 L (4.20-5.40) M/uL Hgb 10.7 L 9.9 L (12.0-16.0) g/dl Hct 32.5 L 29.9 L (37.0-47.0) % MCV 82.7 84.2 (80.0-100.0) fL MCH 27.2 27.9 (25.0-34.0) pg MCHC 32.9 33.1 (32.0-36.0) g/dL RDW Std Deviation 46.5 H 46.5 H (36.4-46.3) fL RDW Coeff of Oliva 15.8 H 15.6 H (11.5-14.5) % Plt Count 487 H 446 H (130-400) K/uL MPV 10.2 10.7 (9.4-12.4) fL Treponema pallidum Ab Negative (Negative) Blood Type O Positive Antibody Screen NEGATIVE PE: General: Alert, orientedx3, NAD Abd: soft, NT, fundus firm, below Umbilicus Perineum intact, Lochia rubra minimal Ext; NT, no edema AP: 29 yo s/p , ppd# 1 VSS Afebrile doing well Continue routine care All questions were answered D/C home after 24 hours Discussed when to call Results & Data Vital Signs (Past 12 Hours) Vital Signs Temp Pulse Resp BP Pulse Ox O2 Del Method 12/28/24 03:05 36.6 C 75 16 109/68 96 Room Air 12/27/24 22:58 37.3 C 77 16 124/82 96 Room Air
[2024-12-28] MEDS ORDERED: DIPHTHER/TETAN/PERTUS Vaccine (Tdap, Adol/Adult) 0.5mL IM ONE (09:00)
[2024-12-28 09:08] VITALS: TEMP 98.2
[2024-12-28 13:15] VITALS: BP 117/76; PULSE 75; RESP 18; O2SAT 95
== END 2024-12-28 15:00 | disposition home or self-care (01) | DRG 807 ==
LOC: OPB 06:12 → 4S1 06:21 → 4E2 16:41